=== PATIENT | male | born 1990 | race Caucasian/White ===

== ENCOUNTER 2023-01-25 08:10 | Emergency (ER) | payer OTHER, SELFPAY ==
[2023-01-25 08:17] VITALS: BP 120/70; PULSE 71; RESP 18; TEMP 36.7; O2SAT 98; BMI 31.0
--- NOTE | 2023-01-25 08:19 | XR_ITS ---
The [address] [address] Patient Name: ESTEBAN ANTONIO MRN: [id number] date: 1990 Sex: M Assigned Patient Location: ER Current Patient Location: ED.MAIN Accession/Order Number: [id number] Exam Date: 01/25/2023 08:38 Report Date: 01/25/2023 09:04 At the request of: MEGHANN GERMAIN Procedure: XR ankle LT min 3V PROCEDURE: XR ankle LT min 3V COMPARISON: None. HISTORY: injury c/o pain FINDINGS: BONES:No fracture, acute abnormality, or significant arthropathy. SOFT TISSUES:Lateral soft tissue swelling EFFUSION:None visible. OTHER: Negative. XR/XR ankle LT min 3V IMPRESSION: Lateral soft tissue swelling, no acute fracture Electronically authenticated by: RANI NINO Date: 01/25/2023 09:04
--- NOTE | 2023-01-25 08:31 | ED.LOWEXI1 ---
HPI - Extremity Injury (Lower) General Chief Complaint: Extremity Injury, Lower Stated Complaint: ANKLE PAIN Time Seen by Provider: 01/25/23 08:13 Source: patient Mode of arrival: walk-in Limitations: no limitations History of Present Illness HPI Narrative: 32-year-old male presents for left ankle pain. He points to the left lateral malleolus to indicate area of pain. He twisted it when he slipped on wooden steps this morning at home. No other injury was sustained. The pain is moderate and worse when he walks. Related Data Allergies Allergy/AdvReac Type Severity Reaction Status Date / Time No Known Drug Allergies Allergy Verified 01/25/23 08:16 PFSH PFSH Social History Smoking status: Never smoker Exam Narrative Exam Narrative: Nurses note and vital signs reviewed and patient is not hypoxic. General: The patient appears well and in no apparent distress. Patient is resting comfortably on cart with ice pack on ankle. Skin: Warm, dry, no pallor noted. There is no rash noted. Head: Normocephalic, atraumatic Eye: Normal conjunctiva, no drainage Ears, Nose, Mouth, and Throat: oral mucosa is moist. Nares patent. Cardiovascular: Regular Rate and Rhythm Respiratory: Patient is in no distress, no accessory muscle use, lungs are clear to auscultation, no wheezing, rales or rhonchi Back: non-tender GI: nontender Musculoskeletal: left foot is nontender including the 5th metatarsal area. Left lateral malleolus is mildly swollen with intact skin. Neurological: A&O, normal speech Psychiatric: Cooperative Constitutional Vital Signs, click to edit/add: Last Vital Signs Temp 98.1 F 01/25/23 08:17 Pulse 71 01/25/23 08:17 Resp 18 01/25/23 08:17 BP 120/70 01/25/23 08:17 Pulse Ox 98 01/25/23 08:17 O2 Del Method Room Air 01/25/23 08:17 Course Vital Signs Vital signs: Vital Signs Temperature 98.1 F 01/25/23 08:17 Pulse Rate 71 01/25/23 08:17 Respiratory Rate 18 01/25/23 08:17 Blood Pressure 120/70 01/25/23 08:17 Pulse Oximetry 98 01/25/23 08:17 Oxygen Delivery Method Room Air 01/25/23 08:17 Temperature 98.1 F 01/25/23 08:17 Pulse Rate 71 01/25/23 08:17 Respiratory Rate 18 01/25/23 08:17 Blood Pressure 120/70 01/25/23 08:17 Pulse Oximetry 98 01/25/23 08:17 Oxygen Delivery Method Room Air 01/25/23 08:17 MDM - Extremity Injury (Lower) MDM Narrative Medical decision making narrative: x-rays per radiology showed no fracture. Anson wrap and air splint applied, application checked by me and found to be appropriate, he is neurovascularly intact. He was offered crutches and has apparent that he can utilize. Treatment diagnosis and follow-up were discussed with the patient. Differential Diagnosis Differential diagnosis: Likely ankle sprain and strain and ankle fracture Imaging Data ankle x-ray: Radiologist's impression: Procedure: XR ankle LT min 3V PROCEDURE: XR ankle LT min 3V COMPARISON: None. HISTORY: injury c/o pain FINDINGS: BONES:No fracture, acute abnormality, or significant arthropathy. SOFT TISSUES:Lateral soft tissue swelling EFFUSION:None visible. OTHER: Negative. IMPRESSION: Lateral soft tissue swelling, no acute fracture Electronically authenticated by: RANI NINO Date: 01/25/2023 09:04 Discharge Plan Discharge Chief Complaint: Extremity Injury, Lower Clinical Impression: Ankle sprain Patient Disposition: Home, Self-Care Time of Disposition Decision: 09:20 Condition: Good Mode of Transportation: Private Vehicle Instructions: Ankle Sprain (ED), How to Use an Elastic Bandage (ED), Ankle Stirrup Splint (ED) Stand Alone Forms: Portal Instructions Referrals: Physician,Non-Staff, MD [Primary Care Provider] - 1 week
[2023-01-25 09:49] VITALS: BP 122/66; PULSE 72; RESP 16; O2SAT 99
== END 2023-01-25 09:50 | disposition home or self-care (01) ==
PROVIDERS: Emergency Provider Emergency Medicine
DX: S93.401A Sprain of unspecified ligament of right ankle, initial encounter (principal); W10.9XXA Fall (on) (from) unspecified stairs and steps, initial encounter
CPT/HCPCS: 73610; 99283